=== PATIENT | male | born 1980 | race African-American/Black ===

== ENCOUNTER 2022-10-12 18:57 | Emergency (ER) | payer SELFPAY ==
[2022-10-12 19:04] VITALS: BP 151/113; PULSE 72; RESP 16; TEMP 36.9; O2SAT 100
--- NOTE | 2022-10-12 19:13 | ED.NAVMDI ---
HPI - Nausea/Vomiting/Diarrhea General Chief complaint: Nausea/Vomiting/Diarrhea Stated complaint: Vomiting Time Seen by Provider: 10/12/22 19:13 Source: patient, RN notes reviewed and old records reviewed Mode of arrival: ambulatory Limitations: no limitations History of Present Illness HPI Narrative: 41 year old male who presents to [facility] with complaints of nausea and vomiting since yesterday. He reports that he ate some chili yesterday and he thinks it made him ill. He reports that he has been vomiting intermittently since yesterday. Patient reports that he threw up about an hour ago again and just can't keep any thing down. he states that he has been taking some ice chips at interval. Patient reports that he would like some medication for his nausea and vomiting and he needs a work noted for work today.Patient denies any abdominal pain or any fevers. MD elicited complaint: nausea and vomiting Onset (ago): day(s) (since yesterday) Description of vomiting: food contents and watery Related Data Allergies Allergy/AdvReac Type Severity Reaction Status Date / Time No Known Allergies Allergy Verified 10/12/22 19:08 Review of Systems Review of Systems: CONSTITUTIONAL: Denies fever, chills, or sweats. ENT: Denies rhinorrhea, congestion, sore throat, or otalgia. CARDIOVASCULAR: Denies chest pain, palpitations, or edema. RESPIRATORY: Denies cough or dyspnea. GASTROINTESTINAL: Reports abdominal pain,positive for nausea,and vomiting,no diarrhea. GENITOURINARY: Denies dysuria or hematuria. SKIN: Denies rash or itching. MUSCULOSKELETAL: Denies back pain, joint pain, or myalgia. NEUROLOGIC: Denies headache, numbness, or weakness. All systems reviewed & are unremarkable except as noted in HPI and below PMFSH Social History Social History (Updated 10/12/22 @ 19:56 by Marcia Brock NP) Smoking packs per day: 0.5 Smoking cigarettes per day: 10.0 Years smoked: 20 Smoking pack-years: 10.00 Smoking status: Former smoker Tobacco type: cigarettes Gender identity (if verbalized by the patient): Male Comments At time of signature, agree with nursing past medical, surgical, social and family history. There is no relevant family history pertinent to the presenting complaint Exam Narrative: GENERAL: Well-appearing, well-nourished, and in no acute distress. HEAD: Normocephalic, atraumatic. EYES: PERRLA, conjunctivae clear, and EOMI. ENT: Nares clear. Mucous membranes moist. Oropharynx without edema, erythema, or lesions. Tonsils not enlarged and without exudate. NECK: Supple. No lymphadenopathy CHEST: Speaks in full sentences. No respiratory distress. HEART: Regular rate and rhythm. ABDOMEN: Soft, flat, nondistended. No guarding, rebound tenderness, or rigid. No pulsatilla masses. Bowel sounds present in all four quadrants. No organomegaly. Negative Huang?s sign. No periumbilical tenderness. No Supra public tenderness or distension.no McBurney point tenderness Good femoral pulses bilaterally. No hernia noted. No scars or surface trauma. nausea and vomiting since yesterday. SKIN: Warm, dry, no rash. NEURO:? Alert and oriented x3. PSYCH: Normal mood and affect Course Course Emergency Course: Patient is aware of diagnosis, understands and agrees to treatment plan.? Anticipatory guidance given.? Patient agrees to follow-up as directed and is aware of reasons to seek care at the emergency department. Portions of this record may have been created with voice recognition software Level of Care: Express Care Visit Vital Signs Vital signs: Vital Signs Temperature 36.9 C 10/12/22 19:04 Pulse Rate 72 10/12/22 19:04 Respiratory Rate 16 10/12/22 19:04 Blood Pressure 151/113 H 10/12/22 19:04 Pulse Oximetry 100 10/12/22 19:04 Oxygen Delivery Room Air 10/12/22 19:04 Temperature 36.9 C 10/12/22 19:04 Pulse Rate 72 10/12/22 19:04 Respiratory Rate 16 10/12/22 19:04 Blood Pressure 1
[2022-10-12 19:20] VITALS: BP 146/90
== END 2022-10-12 19:42 | disposition home or self-care (01) ==
PROVIDERS: Emergency Provider Registered Nurse
DX: K52.9 Noninfective gastroenteritis and colitis, unspecified (principal); Z87.891 Personal history of nicotine dependence
CPT/HCPCS: 99203; G0463